=== PATIENT | female | born 1955 | race African-American/Black ===

== ENCOUNTER 2016-09-10 12:36 | Emergency (ER) | payer OTHER ==
--- NOTE | 2016-09-10 13:06 | CPEKG ---
Heart Rate: 72 RR Interval: 833 P-R Interval: 120 QRSD Interval: 74 QT Interval: 376 QTC Interval: 412 P [place]: 76 QRS [place]: -32 T Wave [place]: 164 EKG Severity - ABNORMAL ECG - EKG Impression: SINUS RHYTHM EKG Impression: LEFT AXIS DEVIATION EKG Impression: LVH WITH SECONDARY REPOLARIZATION ABNORMALITY Electronically Signed By: Trey Blair 13-Sep-2016 09:04:16
[2016-09-10 13:18] VITALS: RESP 16; TEMP 99
[2016-09-10 13:33] LABS: COLOR YELLOW; LEUKOCYTE ESTERASE,URINE NEGATIVE (NEGATIVE); NITRITE,URINE NEGATIVE (NEGATIVE)
[2016-09-10 13:41] LABS: % IMMATURE GRANULYOCYTES 0.3 % (0.0-1.1); ABSOLUTE IMMATURE GRANULOCYTES 0.02 10^3/uL (0.00-0.10); ADD DIFF? NO; ADD MORPH? NO; ADD SCAN? NO; ATYPICAL LYMPHOCYTE FLAG 10 (0-99); FRAGMENT RBC FLAG 0 (0-99); HEMATOCRIT 42.5 % (38.0-47.0); HEMOGLOBIN 14.3 g/dL (12.6-16.3); LEFT SHIFT FLG 0 (0-99); LIPEMIA HEMOLYSIS FLAG 80 (0-99); MEAN CELL HEMOGLOBIN 31.4 pg (27.9-34.1); MEAN CELL HEMOGLOBIN CONCENTR. 33.6 g/dL (32.4-36.7); MEAN CELL VOLUME 93.2 fL (81.5-99.8); MEAN PLATELET VOLUME 9.8 fL (8.7-11.7); PLATELET CLUMPS FLAG 0 (0-99); PLATELET COUNT 252 10^3/uL (150-400); RED BLOOD CELL COUNT 4.56 10^6/uL (4.18-5.33); RED CELL DISTRIBUTION WIDTH 13.7 % (11.5-15.2)
[2016-09-10 13:44] LABS: BACTERIA TRACE /hpf (NONE SEEN); WBC,URINE 0-1 /hpf (0-3); YEAST 1+ /hpf (NONE SEEN)
[2016-09-10 14:44] LABS: ALANINE AMINOTRANSFERASE 36 IU/L (9-52); ALBUMIN 3.7 g/dL (3.5-5.0); ALKALINE PHOSPHATASE 103 IU/L (38-126); ANION GAP 14 mEq/L (8-16); ASPARTATE AMINOTRANSFERASE 37 IU/L (14-46); BILIRUBIN,TOTAL 0.5 mg/dL (0.1-1.4); CALCIUM 9.6 mg/dL (8.5-10.4); CARBON DIOXIDE 23 mEq/l (22-31); CHLORIDE 107 mEq/L (97-110); CREATININE 0.6 mg/dL (0.6-1.0); GLOMERULAR FILTRATION RATE > 60; GLUCOSE 96 mg/dL (70-100); SODIUM 144 mEq/L (134-144); TOTAL PROTEIN 7.5 g/dL (6.3-8.2)
[2016-09-10 14:47] LABS: TROPONIN I < 0.012 ng/mL (0-0.034)
--- NOTE | 2016-09-10 15:17 | UCPHY ---
H & P Patient Type: Established Chief Complaint Nursing Narrative: Pt. states has felt lightheaded since yesterday. C/O bilat jaw pain. Denies CP,SOB,N/V/D or fever. Time Seen by Provider: 09/10/16 13:10 HPI/ROS: CHIEF COMPLAINT: Dizziness and jaw pain History by patient HISTORY OF PRESENT ILLNESS: Patient is a 60-year-old woman with a history of lupus and fibromyalgia who complains of dizziness which she describes as not the room spinning or vertigo but feeling like she might pass out which occurs when she stands up too quickly. The 1st episode occurred yesterday after sitting for a long time at work and that she had the same feeling again this morning when she got up from bed. There was no actual syncope. There is no associated chest pain, chest pressure or shortness of breath. She does complain of some mild nausea states that she has some bilateral upper face and jaw pain. Patient has a history of TMJ syndrome it does say her jaw and face pain feels like that. She did not wear her mouth guard last night. Patient has been otherwise well and denies any recent nausea, vomiting diarrhea or new medications. She has had no fever. She has had several months of urinary frequency, urgency and incontinence and says that she saw her primary care physician for this a couple months ago and they told her she did not have a urinary tract infection at that time. Patient has no history of hypertension, diabetes and she has never smoked. Her mother had congestive heart failure and in her 80s. REVIEW OF SYSTEMS: As in HPI, and all other systems reviewed and are negative Source: Patient - Medical/Surgical History Hx Asthma: No Hx Chronic Respiratory Disease: No Hx Diabetes: No Hx Cardiac Disease: No Hx Renal Disease: No Hx Cirrhosis: No Hx Alcoholism: No Hx HIV/AIDS: No Hx Splenectomy or Spleen Trauma: No Other PMH: fibromyalgia, lupus. surg- bunionectomy, femur repair, molly - Family History Significant Family History: No pertinent family hx, Heart disease - Social History Smoking Status: Never smoked - Physical Exam Exam: General Appearance: Alert, well-appearing. Eyes: Pupils equal and round no pallor or injection. ENT, Mouth: Mucous membranes moist. No facial tenderness Respiratory: Normal, effort, There are no retractions, lungs are clear to auscultation. Cardiovascular: Regular rate and rhythm. Gastrointestinal: Abdomen is soft and nontender, no masses, bowel sounds normal. Back: No CVA tenderness Neurological: Awake, alert and oriented x 3, no pronator drift, normal gait, no pronator drift Skin: Warm and dry, no rashes. Musculoskeletal: Neck is supple nontender. Extremities are symmetrical, full range of motion. Psychiatric: Patient has normal affect, there is no agitation. Constitutional: Initial Vital Signs Temperature (C) 37.2 C 09/10/16 12:45 Heart Rate 78 09/10/16 12:45 Respiratory Rate 16 09/10/16 12:45 Blood Pressure 151/91 H 09/10/16 12:45 O2 Sat (%) 95 09/10/16 12:45 O2 Delivery Mode Room Air Allergies/Adverse Reactions: hydroxychloroquine sulfate [From Plaquenil] Allergy (Verified 09/10/16 13:07) metronidazole [From Flagyl] Allergy (Verified 09/10/16 13:07) Metronidazole HCl [From Flagyl] Allergy (Verified 09/10/16 13:07) pregabalin [From Lyrica] Allergy (Verified 09/10/16 13:07) Sulfa (Sulfonamide Antibiotics) Allergy (Verified 09/10/16 13:07) Home Medications: Medication Instructions Recorded Prednisone 8 mg PO 06/04/11 azaTHIOprine [Imuran 50 mg (RX)] 12/30/14 Forteo 08/23/15 Cyclobenzaprine 09/10/16 Gabapentin 09/10/16 Naltrexone HCl 09/10/16 Nitrofurantoin Monohyd/M-Cryst 100 mg PO BID #10 capsule 09/10/16 [Macrobid 100 mg Capsule] Medical Decision Making ED Course/Re-evaluation: 60-year-old woman history of lupus but without any lupus related complications fibromyalgia presents with dizziness when she stands up as well some jaw pain this morning. The symptoms were not clearly related and the jaw pain is like her prior TMJ and she did not where her tooth guard last night. I suspect her jaw symptoms are related to this. Patient also thinks this is likely and that it feels similar to prior TMJ episodes. An ECG was done which showed normal sinus rhythm at a rate of 72 with left axis deviation and inverted T-waves in the lateral leads. There is no old EKG available for comparison. There is no evidence of STEMI. Patient states that she has been told she has an abnormal EKG in the past. Labs are all unremarkable. There is no evidence of significant arrhythmia on the equity structurer throughout her emergency department stay. Patient is currently asymptomatic and I suspect her dizziness is orthostatic in nature. I discussed this with the patient and her . I am recommending she follow up closely with her primary care physician because of the abnormal EKG. Urinalysis was notable for hematuria and bacteria and given that the patient has been symptomatic will go ahead and start her on Macrobid to see if this improves her ongoing urinary frequency and incontinence. Patient is discharged home in stable condition. - Data Points Laboratory Results: Laboratory Results 09/10/16 13:35 09/10/16 14:12 09/10/16 09/10/16 09/10/16 14:12 13:35 12:50 WBC 6.55 10^3/uL 10^3/uL (3.80-9.50) RBC 4.56 10^6/uL 10^6/uL (4.18-5.33) Hgb 14.3 g/dL g/dL (12.6-16.3) Hct 42.5 % % (38.0-47.0) MCV 93.2 fL fL (81.5-99.8) MCH 31.4 pg pg (27.9-34.1) MCHC 33.6 g/dL g/dL (32.4-36.7) RDW 13.7 % % (11.5-15.2) Plt Count 252 10^3/uL 10^3/uL (150-400) MPV 9.8 fL fL (8.7-11.7) Neut % (Auto) 86.2 % H % (39.3-74.2) Lymph % (Auto) 10.2 % L % (15.0-45.0) [place] % (Auto) 2.7 % L % (4.5-13.0) Eos % (Auto) 0.3 % L % (0.6-7.6) Baso % (Auto) 0.3 % % (0.3-1.7) Nucleat RBC Rel Count 0.0 % % (0.0-0.2) Absolute Neuts (auto) 5.64 10^3/uL 10^3/uL (1.70-6.50) Absolute Lymphs (auto) 0.67 10^3/uL L 10^3/uL (1.00-3.00) Absolute Monos (auto) 0.18 10^3/uL L 10^3/uL (0.30-0.80) Absolute Eos (auto) 0.02 10^3/uL L 10^3/uL (0.03-0.40) Absolute Basos (auto) 0.02 10^3/uL 10^3/uL (0.02-0.10) Absolute Nucleated RBC 0.00 10^3/uL 10^3/uL (0-0.01) Immature Gran % 0.3 % % (0.0-1.1) Immature Gran # 0.02 10^3/uL 10^3/uL (0.00-0.10) Sodium 144 mEq/L mEq/L (134-144) Potassium 4.0 mEq/L mEq/L (3.5-5.2) Chloride 107 mEq/L mEq/L (97-110) Carbon Dioxide 23 mEq/l mEq/l (22-31) Anion Gap 14 mEq/L mEq/L (8-16) BUN 10 mg/dL mg/dL (7-23) Creatinine 0.6 mg/dL mg/dL (0.6-1.0) Estimated GFR > 60 Glucose 96 mg/dL mg/dL (70-100) Calcium 9.6 mg/dL mg/dL (8.5-10.4) Total Bilirubin 0.5 mg/dL mg/dL (0.1-1.4) AST 37 IU/L IU/L (14-46) ALT 36 IU/L IU/L (9-52) Alkaline Phosphatase 103 IU/L IU/L (38-126) Troponin I < 0.012 ng/mL ng/mL (0-0.034) Total Protein 7.5 g/dL g/dL (6.3-8.2) Albumin 3.7 g/dL g/dL (3.5-5.0) Urine Color YELLOW Urine Appearance CLEAR Urine pH 6.0 (5.0-7.5) Ur Specific [place] <= 1.005 (1.002-1.030) Urine Protein NEGATIVE (NEGATIVE) Urine Ketones NEGATIVE (NEGATIVE) Urine Blood 1+ H (NEGATIVE) Urine Nitrate NEGATIVE (NEGATIVE) Urine Bilirubin NEGATIVE (NEGATIVE) Urine Urobilinogen 0.2 EU EU (0.2-1.0) Ur Leukocyte Esterase NEGATIVE (NEGATIVE) Urine RBC 5-10 /hpf H /hpf (0-3) Urine WBC 0-1 /hpf /hpf (0-3) Ur Epithelial Cells 1+ /lpf /lpf (NONE-1+) Urine Bacteria TRACE /hpf H /hpf (NONE SEEN) Urine Yeast 1+ /hpf H /hpf (NONE SEEN) Urine Glucose NEGATIVE (NEGATIVE) Departure - Departure Disposition: Home, Routine, Self-Care Clinical Impression: Orthostatic dizziness UTI (urinary tract infection) Qualifiers: Urinary tract infection type: site unspecified Hematuria presence: with hematuria Qualified Code(s): N39.0 - Urinary tract infection, site not specified Condition: Good Instructions: Urinary Tract Infection in Women (ED), Lightheadedness (ED) Additional Instructions: You were seen by Dr. Keisha Joiner today. Return for any worsening or new concerns. See if the antibiotics improved your urinary symptoms. Drink plenty of fluids. Follow up with your primary care physician to discuss need for further cardiac testing. Referrals: Aida Carrera MD [Primary Care Provider] - As per Instructions Prescriptions: Nitrofurantoin Monohyd/M-Cryst [Macrobid 100 mg Capsule] 100 mg PO BID #10 capsule - PQRS PQRS Measurement: NA
[2016-09-10 15:44] VITALS: BP 137/84; PULSE 74; O2SAT 96
== END 2016-09-10 15:28 | disposition home or self-care (01) ==
LOC: CED 12:36
DX: N39.0 Urinary tract infection, site not specified (principal); R42 Dizziness and giddiness; R68.84 Jaw pain; M32.9 Systemic lupus erythematosus, unspecified; M79.7 Fibromyalgia; Z82.49 Family history of ischemic heart disease and other diseases of the circulatory system
CPT/HCPCS: 80053-PO; 81003-PO; 81015-PO; 84484-PO; 85025-PO; 93010-PO; 99215-PO; G0463-PO